=== PATIENT | female | born 1970 | race Two or more races ===

== ENCOUNTER 2021-01-29 15:31 | Emergency (ER) | payer OTHER ==
[~2021-01-29] VITALS: Ht 154.9 cm; Wt 56.7 kg
--- NOTE | 2021-01-29 15:48 | NUR ---
S[facility] jack in [facility] - 01/29/21 at 1549 by JUSTINO COVID SWAB DONE AND SENT TO LAB
[2021-01-29 15:54] LABS: BASOPHILS # (AUTO) 0.1 /CMM (0.0-0.2); BASOPHILS % (AUTO) 0.7 % (0.0-2.0); EOSINOPHILS % (AUTO) 0.8 % (0.0-6.0); HEMATOCRIT 44 % (33-45); HEMOGLOBIN 14.5 g/dL (11.5-14.8); LYMPHOCYTES # (AUTO) 2.7 /CMM (0.8-4.8); LYMPHOCYTES % (AUTO) 26.3 % (20.0-44.0); MEAN CORPUSCULAR HGB CONC 33 g/dl (31.0-36.0); MEAN CORPUSCULAR VOLUME 92 fL (82-100); MONOCYTES # (AUTO) 0.6 /CMM (0.1-1.30); MONOCYTES % (AUTO) 6.2 % (2.0-12.0); NEUTROPHILS # (AUTO) 6.8 /CMM (1.8-8.9); PLATELET COUNT (AUTO) 249 /CMM (150-450); RED BLOOD CELL COUNT(AUTO) 4.76 MIL/uL (4.0-5.2); WHITE BLOOD COUNT (AUTO) 10.3 K/uL (4.3-11.0)
[2021-01-29] MEDS ORDERED: IV NS 0.9% 1,000 ML BAG IV ONE (16:00)
[2021-01-29 16:10] LABS: CARBON DIOXIDE 27 mmol/L (21-32); CHLORIDE 103 mmol/L (98-107); CREATININE 0.8 mg/dL (0.6-1.3); GLUCOSE 85 mg/dL (74-106); POTASSIUM 4.1 mmol/L (3.5-5.1); SODIUM SERUM 140 mmol/L (136-145); UREA NITROGEN, BLOOD 16 mg/dL (7-18)
--- NOTE | 2021-01-29 16:22 | NUR ---
BIB [facility] 80 FROM A CLINIC,NEAR SYNCOPAL EPISODE AF A WARTS REMOVAL,R HAND. PT AAOX4, VSS. RR EVEN & UNLABORED. DENIES CP, SOB, N/V AT THIS TIME. PT SEEN & EVAL'D BY DR. PHELPS. WILL CONT TO MONITOR.
[2021-01-29 17:10] LABS: CALCIUM, SERUM 9.2 mg/dL (8.5-10.1)
[2021-01-29 18:35] VITALS: BP 128/74
--- NOTE | 2021-01-29 18:35 | NUR ---
Patient discharged to home in stable condition. Written and verbal after care instructions given. Patient verbalizes understanding of instruction. IV removed. Catheter intact and site benign. Pressure and 4x4 applied to site. No bleeding noted.
== END 2021-01-29 18:36 | disposition home or self-care (01) ==
LOC: ER 15:37
DX: R55 Syncope and collapse (principal); R42 Dizziness and giddiness
CPT/HCPCS: 36415; 80048; 84484; 84703; 85025; 93005; 96360; 99284; J7030